=== PATIENT | female | born 1970 | race Asian ===

== ENCOUNTER 2017-10-03 09:40 | Outpatient (CLI) | payer OTHER ==
[2017-10-03 11:48] LABS: ALBUMIN 4.3 g/dL (3.4-5.0); ASPARTATE AMINOTRANSFERASE 24 U/L (15-37); CARBON DIOXIDE 26.7 mmol/L (21-32); CHLORIDE 102 mmol/L (98-107); CREATININE 0.5 mg/dL (0.6-1.3); GFR ARICAN-AMERICAN 170 mL/min (>90); GLUCOSE 124 mg/dL (74-106); POTASSIUM 3.7 mmol/L (3.5-5.1); SODIUM SERUM 139 mmol/L (136-145); THYROID STIMULATING HORMONE < 0.01 uIU/mL (0.34-3.74); TOTAL BILIRUBIN 0.4 mg/dL (0.0-1.0); UREA NITROGEN, BLOOD 11 mg/dL (7-18)
[2017-10-03 12:26] LABS: HDL CHOLESTEROL 78 mg/dL (40-60); LDL (CALC) 65 mg/dL (60-100); TRIGLYCERIDES 61 mg/dL (30-150)
== END 2017-10-03 20:54 | disposition home or self-care (01) ==
LOC: MLB 09:40
PROVIDERS: ATTEND Internal Medicine Geriatric Medicine
DX: Z00.01 Encounter for general adult medical examination with abnormal findings (principal); E11.9 Type 2 diabetes mellitus without complications; R80.9 Proteinuria, unspecified
CPT/HCPCS: 36415; 80053; 82043; 82306; 83036; 84443

== ENCOUNTER 2018-09-21 09:18 | Outpatient (CLI) | payer OTHER ==
[2018-09-21 09:54] LABS: BASOPHILS % (AUTO) 0.4 % (0.0-2.0); EOSINOPHILS # (AUTO) 0.3 K/uL (0-0.4); EOSINOPHILS % (AUTO) 6.4 % (0.0-4.0); HEMATOCRIT 42.3 % (36-48); LYMPHOCYTES # (AUTO) 2.1 K/uL (2.5-16.5); MEAN CORPUSCULAR HEMOGLOBIN 28 pg (27-31); MEAN CORPUSCULAR HGB CONC 33 g/dL (33-37); MEAN CORPUSCULAR VOLUME 85.2 fL (80-94); MONOCYTES # (AUTO) 0.3 K/uL (0.8-1.0); MONOCYTES % (AUTO) 6.6 % (1.7-9.3); NEUTROPHILS # (AUTO) 2.4 K/uL (1.8-7.7); NEUTROPHILS % (AUTO) 45.6 % (42.2-75.2); PLATELET COUNT (AUTO) 300 K/uL (140-450); RED BLOOD CELL COUNT(AUTO) 4.97 MIL/uL (4.20-5.40); RED CELL DISTRIBUTION WIDTH 13.6 % (11.6-13.7); WHITE BLOOD COUNT (AUTO) 5.2 K/uL (4.8-10.8)
[2018-09-21 10:05] LABS: ANION GAP 14.9 (8-16); CARBON DIOXIDE 28.2 mmol/L (21-32); CHLORIDE 104 mmol/L (98-107); CREATININE 0.6 mg/dL (0.6-1.3); GFR ARICAN-AMERICAN 137 mL/min (>90); GLUCOSE 115 mg/dL (74-106); POTASSIUM 4.1 mmol/L (3.5-5.1); SODIUM SERUM 143 mmol/L (136-145); UREA NITROGEN, BLOOD 10 mg/dL (7-18)
[2018-09-21 10:19] LABS: ASPARTATE AMINOTRANSFERASE 26 U/L (15-37); TOTAL BILIRUBIN 0.6 mg/dL (0.0-1.0)
[2018-09-21 10:45] LABS: ALBUMIN 4.1 g/dL (3.4-5.0)
[2018-09-21 10:48] LABS: THYROID STIMULATING HORMONE < 0.01 uIU/mL (0.34-3.74)
[2018-09-21 10:58] LABS: CHOL/HDL RATIO 2.3 (1-4.5); HDL CHOLESTEROL 55 mg/dL (40-60); LDL (CALC) 56 mg/dL (60-100); TRIGLYCERIDES 68 mg/dL (30-150)
[2018-09-22 08:09] LABS: MICROALBUMIN, UR RANDOM <3.0 ug/mL (Not Estab.)
== END 2018-09-21 20:47 | disposition home or self-care (01) ==
LOC: MLB 09:18
PROVIDERS: ATTEND Internal Medicine Geriatric Medicine
DX: E11.9 Type 2 diabetes mellitus without complications (principal)
CPT/HCPCS: 36415; 80053; 82043; 82306; 83036; 84439; 84443; 84480; 84481; 85025; 86376

== ENCOUNTER 2019-04-19 10:57 | Outpatient (CLI) | payer OTHER ==
[2019-04-19 11:51] LABS: ALBUMIN 4.2 g/dL (3.4-5.0); ANION GAP 12.1 (8-16); CARBON DIOXIDE 29.9 mmol/L (21-32); CREATININE 0.7 mg/dL (0.6-1.3); TOTAL BILIRUBIN 0.4 mg/dL (0.0-1.0)
[2019-04-19 12:26] LABS: CHOL/HDL RATIO 2.7 (1-4.5)
== END 2019-04-19 20:04 | disposition home or self-care (01) ==
LOC: MLB 10:57
PROVIDERS: ATTEND Internal Medicine Geriatric Medicine
DX: E11.9 Type 2 diabetes mellitus without complications (principal); E78.5 Hyperlipidemia, unspecified
CPT/HCPCS: 36415; 80053; 82306; 83036

== ENCOUNTER 2020-02-13 12:26 | Emergency (ER) | payer OTHER ==
[~2020-02-13] VITALS: Ht 154.9 cm; Wt 68.0 kg
[2020-02-13 12:30] VITALS: BP 150/99
--- NOTE | 2020-02-13 12:30 | NUR ---
49 y/o female employee of [employer] presents to ED s/p needlestick. Pt states she got stuck by a needle 10 min prior to arrival. Cleaned with water immediately after stick. Denies pain. No bleeding noted.
--- NOTE | 2020-02-13 12:58 | NUR ---
Dr Maddox at [facility] examining patient
--- NOTE | 2020-02-13 13:21 | NUR ---
Lab at chairside for blood draw
[2020-02-13 13:48] VITALS: BP 150/99
--- NOTE | 2020-02-13 13:48 | NUR ---
Patient discharged with v/s stable. Written and verbal after care instructions given and explained. Patient verbalized understanding. Ambulatory with steady gait. All questions addressed prior to discharge. Advised to follow up with PMD.
[2020-02-13 13:52] LABS: ANION GAP 10.8 (8-16); CARBON DIOXIDE 27.9 mmol/L (21-32); CREATININE 0.5 mg/dL (0.6-1.3); POTASSIUM 3.7 mmol/L (3.5-5.1)
[2020-02-13 13:57] LABS: ALBUMIN 4.3 g/dL (3.4-5.0); TOTAL BILIRUBIN 0.3 mg/dL (0.0-1.0)
[2020-02-14 08:09] LABS: HEPATITIS B SURFACE ANTIGEN Negative (Negative)
[2020-02-14 21:15] LABS: RAPID PLASMA REAGIN NON-REACTIVE (Non Reactiv)
== END 2020-02-13 13:48 | disposition home or self-care (01) ==
LOC: MED 12:26
DX: S60.941A Unspecified superficial injury of left index finger, initial encounter (principal); E11.9 Type 2 diabetes mellitus without complications; I10 Essential (primary) hypertension; Z98.890 Other specified postprocedural states; W46.0XXA Contact with hypodermic needle, initial encounter; Y93.89 Activity, other specified; Y92.89 Other specified places as the place of occurrence of the external cause; Y99.8 Other external cause status
CPT/HCPCS: 36415; 80053; 86592; 86702; 86803; 87340; 99283